=== PATIENT | female | born 1985 | race Caucasian/White ===

== ENCOUNTER 2020-06-04 09:29 | Inpatient (IN) ==
[2020-06-04] MEDS ORDERED: Ringers Solution, Lactated 1,000 ML IVC ONE (09:47)
[2020-06-04] MEDS ORDERED: Metoclopramide 10 MG/2 ML VIAL IVP ONE (09:47)
[2020-06-04] MEDS ORDERED: Famotidine 20 MG/2 ML VIAL IVP ONE (09:47)
[2020-06-04] MEDS ORDERED: CeFAZolin 2,000 MG/50 ML BAG IVPB ONE (09:47)
[2020-06-04] MEDS ORDERED: Oxytocin 20 units/ LR 1000 mL 20 UNIT/1,000 ML BAG IVC ONE ×2 (09:47→13:22)
[2020-06-04] MEDS ORDERED: Ringers Solution, Lactated 1,000 ML IVC SCH ×2 (10:00→15:43)
[2020-06-04 10:24] LABS: Basophils % 0.1 %; Eosinophils # 0.1 K/mcL (0.0-0.6); Eosinophils % 0.7 %; Hematocrit 32.6 % (35.3-44.9); Hemoglobin 10.5 g/dL (11.5-15.4); Immature Granulocytes % 0.9 % (0-4); Lymphocytes # 1.4 K/mcL (0.6-4.6); Lymphocytes % 17.5 %; Mean Corpuscular HGB Conc 32.2 g/dL (31.6-35.5); Mean Corpuscular Hemoglobin 31.3 pg (28.0-33.3); Mean Platelet Volume 10.5 fL (9.4-12.4); Monocytes # 0.4 K/mcL (0.0-1.3); Monocytes % 4.7 %; Neutrophils # 6.1 K/mcL (1.6-8.9); Platelet Count 234 K/mcL (140-400); Red Blood Count 3.36 M/mcL (3.82-4.97); Red Cell Distribution Width 12.2 % (11.5-14.5); Segmented Neutrophils % 76.1 %
[2020-06-04] MEDS ORDERED: *HR* OxyCODONE Immed Rel 5 MG TABLET PO PRN (10:30)
[2020-06-04] MEDS ORDERED: *HR* FentaNYL (PF) 100 MCG/2 ML VIAL IVP PRN (10:30)
[2020-06-04] MEDS ORDERED: FLU Vac QV 20-21 (6Month+)/PF 0.5 ML SYRINGE IM ONE (10:35)
[2020-06-04] MEDS ORDERED: Azithromycin 500 MG in 0.9 % Sodium Chloride 250 ML IVPB ONE (10:49)
[2020-06-04] MEDS ORDERED: Metoclopramide 10 MG/2 ML VIAL ONE (11:31)
[2020-06-04] MEDS ORDERED: *HR* Morphine Sulfate/PF 10 MG/10 ML AMPUL ONE (11:39)
[2020-06-04] MEDS ORDERED: *HR* FentaNYL (PF) 100 MCG/2 ML VIAL ONE (11:39)
[2020-06-04 11:43] LABS: Amphetamine Screen,Urine Negative ng/mL (Cutoff=1000); Barbiturate Screen,Urine Negative ng/mL (Cutoff=200); Benzodiazepines Screen,Urine Negative ng/mL (Cutoff=200); Cannabinoid Screen,Urine Negative ng/mL (Cutoff = 50); Cocaine Screen,Urine Negative ng/mL (Cutoff= 300); Opiate Screen,Urine Negative ng/mL (Cutoff=300); Phencyclidine Screen,Urine Negative ng/mL (Cutoff=25)
[2020-06-04] MEDS ORDERED: Methylergonovine 0.2 MG/ML AMPUL IM ONE ×2 (11:43→14:45)
[2020-06-04] MEDS ORDERED: miSOPROStoL 100 MCG TABLET RC ONE (11:43)
[2020-06-04] MEDS ORDERED: Ketorolac 30 MG/ML VIAL ONE (13:25)
[2020-06-04] MEDS ORDERED: Acetaminophen IV 1,000 MG/100 ML BAG IVPB ONE (13:25)
[2020-06-04] MEDS ORDERED: miSOPROStoL 100 MCG TABLET RC STA (15:20)
[2020-06-04] MEDS ORDERED: Simethicone 80 MG TAB.CHEW PO PRN (15:43)
[2020-06-04] MEDS ORDERED: Sennosides 8.6 MG TABLET PO PRN (15:43)
[2020-06-04] MEDS ORDERED: Ondansetron 4 MG/2 ML VIAL IVP PRN (15:43)
[2020-06-04] MEDS ORDERED: Metoclopramide 10 MG/2 ML VIAL IVP PRN (15:43)
[2020-06-04] MEDS ORDERED: Oxytocin 20 units/ LR 1000 mL 20 UNIT/1,000 ML BAG IVC SCH (15:43)
[2020-06-04] MEDS ORDERED: *HR* Promethazine 25 MG/ML VIAL IM ONE (16:12)
[2020-06-04 16:43] LABS: Hemoglobin 10.6 g/dL (11.5-15.4)
[2020-06-04] MEDS: Oxytocin 20 units/ LR 1000 mL 20 UNIT/1,000 ML BAG IVC SCH ×2 (17:07→21:04)
[2020-06-04] MEDS: cephALEXin 500 MG CAPSULE PO SCH ×2 (17:09→21:04)
[2020-06-04] MEDS: metroNIDAZOLE 500 MG TABLET PO SCH ×2 (17:09→21:04)
[2020-06-04] MEDS: *HR* OxyCODONE/APAP 5/325 TABLET PO PRN (21:04)
[2020-06-05] MEDS: Ibuprofen 600 MG TABLET PO PRN ×3 (00:25→19:46)
[2020-06-05] MEDS: *HR* OxyCODONE/APAP 5/325 TABLET PO PRN ×4 (01:10→18:26)
[2020-06-05 04:49] LABS: Basophils % 0.1 %; Eosinophils # 0.1 K/mcL (0.0-0.6); Eosinophils % 0.7 %; Hematocrit 26.4 % (35.3-44.9); Hemoglobin 8.3 g/dL (11.5-15.4); Immature Granulocytes % 0.9 % (0-4); Lymphocytes # 1.5 K/mcL (0.6-4.6); Lymphocytes % 15.6 %; Mean Corpuscular HGB Conc 31.4 g/dL (31.6-35.5); Mean Corpuscular Volume 98.5 fL (83.0-100.0); Mean Platelet Volume 10.6 fL (9.4-12.4); Monocytes # 0.4 K/mcL (0.0-1.3); Monocytes % 4.1 %; Neutrophils # 7.8 K/mcL (1.6-8.9); Platelet Count 216 K/mcL (140-400); Red Blood Count 2.68 M/mcL (3.82-4.97); Red Cell Distribution Width 12.3 % (11.5-14.5); Segmented Neutrophils % 78.6 %; White Blood Count 9.9 K/mcL (4.3-11.1)
[2020-06-05] MEDS: cephALEXin 500 MG CAPSULE PO SCH ×3 (09:28→21:53)
[2020-06-05] MEDS: Prenatal Vit/FA 1 EACH TABLET PO SCH (09:28)
[2020-06-05] MEDS: metroNIDAZOLE 500 MG TABLET PO SCH ×3 (09:28→21:53)
[2020-06-05] MEDS: Oxytocin 20 units/ LR 1000 mL 20 UNIT/1,000 ML BAG IVC SCH (09:33)
[2020-06-05] MEDS ORDERED: Lanolin 7 G OINT...G. TP PRN (15:20)
[2020-06-06] MEDS: *HR* OxyCODONE/APAP 5/325 TABLET PO PRN ×2 (00:34→07:49)
[2020-06-06] MEDS: cephALEXin 500 MG CAPSULE PO SCH (07:48)
[2020-06-06] MEDS: metroNIDAZOLE 500 MG TABLET PO SCH (07:48)
[2020-06-06] MEDS: Prenatal Vit/FA 1 EACH TABLET PO SCH (07:48)
[2020-06-06 08:03] VITALS: BP 128/86
[2020-06-06] MEDS: Ibuprofen 600 MG TABLET PO PRN (10:06)
== END 2020-06-06 11:00 | disposition home or self-care (01) | DRG 539 ==
LOC: SAMDAY 09:29 → 1NENULAB 09:32 → 1NENUOBS 16:13
PROVIDERS: ADMIT Obstetrics & Gynecology; ATTEND Obstetrics & Gynecology